=== PATIENT | female | born 2000 | race Hispanic/Latino ===

== ENCOUNTER 2021-02-10 10:25 | Emergency (ER) | payer OTHER ==
--- OUTSIDE RECORDS SUMMARY | 2021-02-10 10:28 | XMS REPORT | Continuity of Care Document ---
:2000 Author Organization [facility] t Address [address] [place] [address] [address] [place] [address] Care Team Providers Name Role Phone Jose Villalobos Primary Care Physician [phone] INDUCTION Attending Clinician Unavailable Marifer RANDALL Attending Clinician Unavailable Marifer Villalobos Attending Clinician Lab Attending Clinician Unavailable Payers Payer Name Policy Type Policy Number Effective Date Expiration Date S danny [place] [employer] [id number] 2020 [employer]AN MOM 00:00:00 CHIP LOW F[employer] Problems Condition Condition Condition Status Onset Resolution Last Treating Co mments Source Name Details Category Date Date Treatment Clinician Date Influenza Influenza Disease Active 2020-02 Uni vers vaccine vaccine 1-24 ity of refused refused 00:00: [place] 00 Medical Branch Heartburn Heartburn Disease Active 2020-02 Uni vers [place] 1[place] Med[place] l trimester trimester Bran ch Asthma Asthma Disease Active Univers during during 7-13 [place] Supervisio Supervisio Disease Active U nivers n of other n of other 6-18 it y of high risk high [place] , [place]ical antepartum antepartum Br anch Obesity Obesity Disease Active Univers affecting affecting 5-20 [place] 00 Medi nuris trimester trimester Bran ch Allergies, Adverse Reactions, Alerts Allergy Allergy Status Severity Reaction(s) Onset Inactive Treating Comm ents Source Name Type Date Date Clinician NO KNOWN Drug Active Univers ALLERGIE Class ity of S [facility] Social History Social Habit Start Date Stop Date Quantity Comments Source ASSERTION 2020-05-30 University 00:00:00 [facility] Exposure to Not sure University of SARS-CoV-2 [facility] (event) Branch Alcohol intake 2021-02-07 2021-02-07 Current University 00:00:00 00:00:00 non-drinker of [facility] alcohol Branch (finding) Tobacco use and 2018-06-09 2018-06-09 Never used Universit y of exposure 00:00:00 00:00:00 [facility] Sex Ass[birth year] At [birth year] Universit y of 00:00:00 00:00:00 [facility] Smoking Status Start Date Stop Date Source Never smoker [facility] Medications Ordered Filled Start Stop Current Ordering Indication Dosage Frequency Signature Comments Components Source Medication Medication Date Date Medication? Clinician (SIG) Name Name calcium 2020-02 Yes [id number] 1{tbl} Take 1 Un elvira carbonate 1-24 tablet by ity o f (TUMS) 200 00:00: mouth [place] mg calcium 00 daily. Medical (500 mg) Branch chewable tablet calcium 2020-02 Yes [id number] 1{tbl} Take 1 Un elvira carbonate 1-24 tablet by ity o f (TUMS) 200 00:00: mouth [place] mg calcium 00 daily. Medical (500 mg) Branch chewable tablet calcium 2020-02 Yes [id number] 1{tbl} Take 1 Un elvira carbonate 1-24 tablet by ity o f (TUMS) 200 00:00: mouth [place] mg calcium 00 daily. Medical (500 mg) Branch chewable tablet calcium 2020-02 Yes [id number] 1{tbl} Take 1 Un elvira carbonate 1-24 tablet by ity o f (TUMS) 200 00:00: mouth [place] mg calcium 00 daily. Medical (500 mg) Branch chewable tablet Yes [id number] 1{tbl} Take 1 U nivers multivitami 8-17 tablet by ity of n ( 00:00: mouth [place] VITAMIN) 00 daily. Medical tablet Branch Yes [id number] 1{tbl} Take 1 U nivers multivitami 8-17 tablet by ity of n ( 00:00: mouth [place] VITAMIN) 00 daily. Medical tablet Branch Yes [id number] 1{tbl} Take 1 U nivers multivitami 8-17 tablet by ity of n ( 00:00: mouth [place] VITAMIN) 00 daily. Medical tablet Branch Yes [id number] 1{tbl} Take 1 U nivers multivitami 8-17 tablet by ity of n ( 00:00: mouth [place] VITAMIN) 00 daily. Medical tablet Branch acetaminoph Yes [id number] 650mg Take 1 Univers en 650 mg 7-13 tablet by ity o f CR tablet 00:00: mouth [place] 00 every 6 Medical (six) Branch hours as needed for Pain. albuterol Yes [id number] 2{puff} Inhale 2 Univers 90 7-13 Puffs ity of mcg/actuati 00:00: every 6 [place] on inhaler 00 (six) Medical hours as Branch needed for Wheezing or Shortness of Breath. acetaminoph Yes [id number] 650mg Take 1 Univers en 650 mg 7-13 tablet by ity o f CR tablet 00:00: mouth [place] 00 every 6 Medical (six) Branch hours as needed for Pain. albuterol Yes [id number] 2{puff} Inhale 2 Univers 90 7-13 Puffs ity of mcg/actuati 00:00: every 6 [place] on inhaler 00 (six) Medical hours as Branch needed for Wheezing or Shortness of Breath. acetaminoph Yes [id number] 650mg Take 1 Univers en 650 mg 7-13 tablet by ity o f CR tablet 00:00: mouth [place] 00 every 6 Medical (six) Branch hours as needed for Pain. albuterol Yes [id number] 2{puff} Inhale 2 Univers 90 7-13 Puffs ity of mcg/actuati 00:00: every 6 [place] on inhaler 00 (six) Medical hours as Branch needed for Wheezing or Shortness of Breath. acetaminoph Yes [id number] 650mg Take 1 Univers en 650 mg 7-13 tablet by ity o f CR tablet 00:00: mouth [place] 00 every 6 Medical (six) Branch hours as needed for Pain. albuterol Yes [id number] 2{puff} Inhale 2 Univers 90 7-13 Puffs ity of mcg/actuati 00:00: every 6 [place] on inhaler 00 (six) Medical hours as Branch needed for Wheezing or Shortness of Breath. Immunizations Ordered Filled Immunization Date Status Comments [facility] Immunization Name Name TDAP 2020-11-27 Completed University 00:00:00 [facility] TDAP 2020-11-27 Completed University 00:00:00 [facility] TDAP 2020-11-27 Completed University of 00:00:00 [facility] TDAP 2020-11-27 Completed University of 00:00:00 [facility] Influenza Virus 2018-11-16 Completed Universit y of Vaccine Quad .5 mL 00:00:00 [facility] 6+ MO Branch Influenza Virus 2018-11-16 Completed Universit y of Vaccine Quad .5 mL 00:00:00 [facility] IM 6+ MO Branch Influenza Virus 2018-11-16 Completed Universit y of Vaccine Quad .5 mL 00:00:00 [facility] 6+ MO Branch Influenza Virus 2018-11-16 Completed Universit y of Vaccine Quad .5 mL 00:00:00 [facility] 6+ MO Branch TDAP (ADACEL) 2018-11-03 Completed University of VACCINE 00:00:00 [facility] TDAP (ADACEL) 2018-11-03 Completed University of VACCINE 00:00:00 [facility] TDAP (ADACEL) 2018-11-03 Completed University of VACCINE 00:00:00 [facility] TDAP (ADACEL) 2018-11-03 Completed University of VACCINE 00:00:00 [facility] Vital Signs Vital Name Observation Time Observation Value Comments Source Systolic blood 2021-02-07 21:36:00 113 mm[Hg] Univer sity of pressure [facility] Diastolic blood 2021-02-07 21:36:00 74 mm[Hg] Unive rsity of pressure [facility] Heart rate 2021-02-07 21:36:00 81 /min [facility] Body temperature 2021-02-07 21:36:00 36.83 Kamille [facility] Respiratory rate 2021-02-07 21:36:00 20 /min [facility] Body height 2021-02-07 21:36:00 162.6 cm [facility] [place] [facility] Body weight 2021-02-07 21:36:00 91.309 kg [facility] [place] [facility] BMI 2021-02-07 21:36:00 34.55 kg/m2 [facility] [place] [facility] Systolic blood 2021-02-01 21:30:00 107 mm[Hg] Univer sity of pressure [facility] Diastolic blood 2021-02-01 21:30:00 72 mm[Hg] Unive rsity of pressure [facility] Branch Heart rate 2021-02-01 21:30:00 83 /min Universi ty of [facility] Body temperature 2021-02-01 21:30:00 36.89 Kamille [facility] Respiratory rate 2021-02-01 21:30:00 18 /min [facility] [place] [facility] Body height 2021-02-01 21:30:00 162.6 cm [facility] [place] [facility] Body weight 2021-02-01 21:30:00 90.175 kg [facility] [place] [facility] BMI 2021-02-01 21:30:00 34.12 kg/m2 [facility] [place] [facility] Procedures Procedure Date / Time Performed Performing Clinician Sour e POCT URINALYSIS 2021-02-07 21:37:00 Jose Randall [facility] GLUCOSE & PROTEIN Medical Branch POCT URINALYSIS 2021-02-01 00:00:00 Jose Randall [facility] GLUCOSE & PROTEIN [facility] Encounters Start End Encounter Admission Attending Care Care Encounter Source Date/Time Date/Time Type Type Clinicians Facility Department ID 2021-02-13 2021-02-13 Outpatient INDUCTION, [facility] [id number] Univers 19:00:00 19:00:00 JESUS [id number] london [facility] 2021-02-07 2021-02-07 Outpatient R TONIA [facility] [id number] Univers 15:00:00 16:19:47 JOSE london [facility] 2021-02-07 2021-02-07 Routine Tonia [facility] [id number] Univers 15:00:00 16:19:47 Jose Caicedo CIVIL ESTIMATOR [id number] ity of Visit REGIONAL [id number] [place] MATERNAL [id number] [address] 2021-02-07 2021-02-07 Outpatient R [facility] [id number] Univers 15:00:00 15:00:00 [facility] [id number]-01 2021-02-01 Outpatient R [facility] [id number] Univers 15:30:00 15:51:03 [facility] 2021-02-01 2021-02-01 Routine [facility] [id number] Univers 15:30:00 15:51:03 Jose Caicedo CIVIL ESTIMATOR [id number] ity of Visit REGIONAL [id number] [place] MATERNAL [id number] [address] 2021-01-29 2021-01-29 Outpatient R [facility] [id number] Univers 15:30:00 15:30:00 JOSE yousif [facility] 2021-01-29 2021-01-29 Laboratory Lab, [facility] [id number] Univers 15:27:56 15:28:09 Only Jose Randall CIVIL ESTIMATOR [id number] ity of REGIONAL [id number] [place] MATERNAL [id number] [address] 2021-01-29 2021-01-29 [facility] [id number] Univers 00:00:00 00:00:00 Jose Caicedo CIVIL ESTIMATOR [id number] ity of REGIONAL [id number] [place] MATERNAL [id number] [address] Results Test Description Test Time Test Comments Results Result Comments Source POCT URINALYSIS GLUCOSE & PROTEIN 2021-02-07 21:37:00 Test Item Value Reference Range Interpretation Comme nts POCT U PROT (test code = 3259) neg Negative - Negative POCT U GLU (test code = 3256) neg Negative - Negative [facility] 2021-02-01 21:32:00 Test Item Value Reference Range Interpretation Comments POCT U PROT (test code = 3259) neg Negative - Negative POCT U GLU (test code = 3256) neg Negative - Negative [facility] [place]
[2021-02-10 13:21] LABS: SARS-COV-2 RT PCR NEGATIVE (NEGATIVE)
--- NOTE | 2021-02-10 13:31 | ER ---
Nurse's Notes [facility] Name: Florida Berg Age: 20 yrs Sex: Female : 2000 Arrival Date: 02/10/2021 Time: 10:26 Bed 11 Private MD: Diagnosis: Nausea Presentation: 02/10 11:58 Chief complaint: Patient states: Pt c/o nausea, dizziness, headache and cold/hot sweats ld1 beginning yesterday morning. Pt states that it has gotten worse today. Coronavirus screen: Client presents with at least one sign or symptom that may indicate coronavirus-19. Standard/surgical mask placed on the client. Ebola Screen: No symptoms or risks identified at this time. Initial Sepsis Screen: Does the patient meet any 2 criteria? No. Patient's initial sepsis screen is negative. Does the patient have a suspected source of infection? No. Patient's initial sepsis screen is negative. Risk Assessment: Do you want to hurt yourself or someone else? Patient reports no desire to harm self or others. Onset of symptoms was February 10, 2021. 11:58 Method Of Arrival: Ambulatory ld1 11:58 Acuity: GABY 4 ld1 Triage Assessment: 12:00 General: Appears in no apparent distress. comfortable, Behavior is calm, cooperative, ld1 appropriate for age. Pain: Denies pain. GI: Abdomen is round non-distended, Reports nausea. 12:00 Respiratory: Airway is patent Respiratory effort is even, unlabored. 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 - Social history:: Smoking status: Patient denies any tobacco usage or history of. Patient/guardian denies using alcohol, Patient/guardian denies using street drugs, The patient lives with spouse, . - Family history:: not pertinent. Vital Signs: 11:58 BP 112 / 78; Pulse 82; Resp 18; Temp 98.1(O); Pulse Ox 99% on R/A; Weight 86.18 kg; ld1 Height 5 ft. 3 in. (160.02 cm); Pain 0/10; 11:58 Body Mass Index 33.66 (86.18 kg, 160.02 cm) ld1 ED Course: 10:26 Patient arrived in ED. am2 12:00 Triage completed. ld1 12:00 Arm band placed on right wrist. EKG completed in triage. Results shown to MD. EKG ld1 completed in triage. Results shown to MD. 12:01 COVID-19/FLU A+B (Document "Date of Onset" if Symptomatic) Sent. ld1 13:16 Valentine Rausch MD is Attending Physician. ma2 13:32 Leonora Heredia, RN is Primary Nurse. iw Administered Medications: 14:00 Drug: Benadryl (diphenhydrAMINE) 25 mg Route: PO; iw 14:01 Drug: Acetaminophen 1000 mg Route: PO; iw Outcome: 13:30 Discharge ordered by . ma2 14:06 Patient left the ED. iw Signatures: Leonora Heredia, RN RN iw Juany Pfeiffer [facility] Valentine Rausch MD MD ma2 Dibbern, Lauren, RN RN ld1
--- NOTE | 2021-02-10 13:31 | EDPHYS ---
Physician Documentation [facility] Name: Florida Berg Age: 20 yrs Sex: Female : 2000 Arrival Date: 02/10/2021 Time: 10:26 Bed 11 Private MD: ED Physician Valentine Rausch HPI: 02/10 13:29 This 20 yrs old Female presents to ER via Ambulatory with complaints of ma2 Nausea, Dizziness, preg. 13:29 The patient presents to the emergency department with nausea. Onset: The ma2 symptoms/episode began/occurred gradually, 1 day(s) ago. Associated signs and symptoms: Pertinent negatives: belching, diarrhea, fever, GI bleeding, hematuria. Severity of symptoms: At their worst the symptoms were mild in the emergency department the symptoms are unchanged. The patient has not experienced similar symptoms in the past. 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 - Social history:: Smoking status: Patient denies any tobacco usage or history of. Patient/guardian denies using alcohol, Patient/guardian denies using street drugs, The patient lives with spouse, . - Family history:: not pertinent. ROS: 13:29 Constitutional: Negative for fever, chills, and weight loss. ma2 13:29 All other systems are negative. Exam: 13:29 Constitutional: This is a well developed, well nourished patient who is awake, alert, ma2 and in no acute distress. Head/Face: Normocephalic, atraumatic. Eyes: Pupils equal round and reactive to light, extra-ocular motions intact. Lids and lashes normal. Conjunctiva and sclera are non-icteric and not injected. Cornea within normal limits. Periorbital areas with no swelling, redness, or edema. ENT: Nares patent. No nasal discharge, no septal abnormalities noted. Tympanic membranes are normal and external auditory canals are clear. Oropharynx with no redness, swelling, or masses, exudates, or evidence of obstruction, uvula midline. Mucous membranes moist. Neck: Trachea midline, no thyromegaly or masses palpated, and no cervical lymphadenopathy. Supple, full range of motion without nuchal rigidity, or vertebral point tenderness. No Meningismus. Chest/axilla: Normal chest wall appearance and motion. Nontender with no deformity. No lesions are appreciated. Cardiovascular: Regular rate and rhythm with a normal S1 and S2. No gallops, murmurs, or rubs. Normal PMI, no JVD. No pulse deficits. Respiratory: Lungs have equal breath sounds bilaterally, clear to auscultation and percussion. No rales, rhonchi or wheezes noted. No increased work of breathing, no retractions or nasal flaring. Abdomen/GI: Soft, non-tender, with normal bowel sounds. No distension or tympany. No guarding or rebound. No evidence of tenderness throughout. Skin: Warm, dry with normal turgor. Normal color with no rashes, no lesions, and no evidence of cellulitis. MS/ Extremity: Pulses equal, no cyanosis. Neurovascular intact. Full, normal range of motion. Neuro: Awake and alert, GCS 15, oriented to person, place, time, and situation. Cranial nerves II-XII grossly intact. Motor strength 5/5 in all extremities. Sensory grossly intact. Cerebellar exam normal. Normal gait. Vital Signs: 11:58 BP 112 / 78; Pulse 82; Resp 18; Temp 98.1(O); Pulse Ox 99% on R/A; Weight 86.18 kg; ld1 Height 5 ft. 3 in. (160.02 cm); Pain 0/10; 11:58 Body Mass Index 33.66 (86.18 kg, 160.02 cm) ld1 MDM: 13:16 Patient medically screened. ma2 13:29 Differential diagnosis: Nonspecific abd pain, gastritis, viral gastroenteritis, ma2 gastroenteritis. 13:30 Data reviewed: vital signs, nurses notes. Counseling: I had a detailed discussion with ma2 the patient and/or guardian regarding: the historical points, exam findings, and any diagnostic results supporting the discharge/admit diagnosis, the presence of at least one elevated blood pressure reading (>120/80) during this emergency department visit, the need for outpatient follow up. Response to treatment: the patient's symptoms have markedly improved after treatment. 02/10 11:58 Order name: COVID-19/FLU A+B (Document "Date of Onset" if Symptomatic) ld1 02/10 11:59 Order name: COVID-19/FLU A+B; Complete Time: 13:30 EDMS Administered Medications: 14:00 Drug: Benadryl (diphenhydrAMINE) 25 mg Route: PO; iw 14:01 Drug: Acetaminophen 1000 mg Route: PO; iw Disposition Summary: 02/10/21 13:30 Discharge Ordered Location: Home ma2 Condition: Stable ma2 Diagnosis - Nausea ma2 Followup: ma2 - With: Private Physician - When: Tomorrow - Reason: If symptoms return, Continuance of care Discharge Instructions: - Discharge Summary Sheet ma2 - Nausea, Adult ma2 Forms: - Medication Reconciliation Form ma2 - Thank You Letter ma2 - Antibiotic Education ma2 - Prescription Opioid Use ma2 Prescriptions: - Benadryl 25 mg Oral Capsule - take 1 capsule by ORAL route every 6 hours As needed; 30 tablet; Refills: 0, ma2 Product Selection Permitted Signatures: Dispatcher [employer] Leonora Zarate, RN RN iw Valentine Rausch MD MD ma2 Trish Epstein RN RN ld1
[2021-02-10] MEDS ORDERED: ACETAMINOPHEN 500 MG TAB ONE (13:55)
[2021-02-10] MEDS ORDERED: DIPHENHYDRAMINE 25 MG TAB/CAP ONE (13:55)
[2021-02-10 14:11] VITALS: BP 112/78; TEMP 98.1; O2SAT 99
== END 2021-02-10 14:06 | disposition home or self-care (01) ==
LOC: ER 10:25
DX: O26.893 Other specified pregnancy related conditions, third trimester (principal); Z20.822 Contact with and (suspected) exposure to COVID-19
CPT/HCPCS: 0240U; 99283